=== PATIENT | female | born 1995 | race Hispanic/Latino ===

== ENCOUNTER 2019-11-05 04:22 | Emergency (ER) | payer SELFPAY ==
[2019-11-05 05:56] LABS: Basophils % (Auto) 0.4 % (0.0-1.8); Eosinophils % (Auto) 0.1 % (0.0-4.3); Hematocrit 34.8 % (30.3-42.9); Hemoglobin 11.4 gm/dl (10.1-14.3); Lymphocytes # (Auto) 1.5 K/mm3 (1.2-5.4); Lymphocytes % (Auto) 14.6 % (13.4-35.0); Mean Corpuscular HGB Conc 33 % (30-34); Mean Corpuscular Volume 83 fl (79-97); Monocytes # (Auto) 0.9 K/mm3 (0.0-0.8); Monocytes % (Auto) 8.9 % (0.0-7.3); Platelet Count 256 K/mm3 (140-440); Red Blood Count 4.21 M/mm3 (3.65-5.03); Red Cell Distribution Width 13.4 % (13.2-15.2)
[2019-11-05 06:17] LABS: BUN/Creatinine Ratio 11; Blood Urea Nitrogen 8 mg/dL (7-17); Calcium 8.8 mg/dL (8.4-10.2); Hemolysis Index 5
[2019-11-05] MEDS ORDERED: POTASSIUM CHLORIDE ER 20 MEQ TAB PO ONE (10:34)
--- NOTE | 2019-11-05 10:41 | Emergency Department Report ---
ED Psych HPI - General Chief Complaint: Altered Mental Status Stated Complaint: ALTERED MENTAL STATUS Time Seen by Provider: 11/05/19 10:29 Source: patient Mode of arrival: Ambulatory - History of Present Illness Initial Comments: Patient is 24 years old female, unknown past medical or psychiatric history. Patient brought to the emergency room via EMS. When they took patient to triage patient stated that she wants some mental evaluation. Patient found by a triage nurse taking her in pain and trying to stab her wrist. When I examined the patient patient with a poor eye contact and when asked questions to give completely irrelevant answers. When asked patient about depression or suicidal ideation she turned her head away. Patient is alert and in no acute distress. MD Complaint: altered mental status - Related Data Allergies Allergy/AdvReac Type Severity Reaction Status Date / Time codeine Allergy Unknown Verified 11/05/19 11:29 ED Review of Systems ROS: Stated complaint: ALTERED MENTAL STATUS Other details as noted in HPI Comment: Unobtainable due to pts medical conditions ED Physical Exam - General Limitations: No Limitations General appearance: alert, in no apparent distress - Head Head exam: Present: atraumatic, normocephalic, normal inspection - Eye Eye exam: Present: normal appearance - ENT ENT exam: Present: normal exam, normal orophraynx, mucous membranes moist - Neck Neck exam: Present: normal inspection, full ROM. Absent: tenderness, meningismus - Respiratory Respiratory exam: Present: normal lung sounds bilaterally - Cardiovascular Cardiovascular Exam: Present: regular rate, normal rhythm, normal heart sounds - GI/Abdominal GI/Abdominal exam: Present: soft, normal bowel sounds. Absent: distended, tenderness, guarding, rebound, rigid, organomegaly, mass, bruit, pulsatile mass, hernia - Extremities Exam Extremities exam: Present: normal inspection, full ROM, normal capillary refill. Absent: tenderness, pedal edema, joint swelling, calf tenderness - Back Exam Back exam: Present: normal inspection, full ROM. Absent: CVA tenderness (R), CVA tenderness (L), muscle spasm, paraspinal tenderness, vertebral tenderness - Neurological Exam Neurological exam: Present: alert, altered, CN II-XII intact, normal gait, reflexes normal. Absent: motor sensory deficit - Psychiatric Psychiatric exam: Present: flat affect - Skin Skin exam: Present: warm, intact, normal color ED Course Vital Signs 11/05/19 11/05/19 11/05/19 04:55 11:04 11:15 Temperature Pulse Rate 111 H 95 H 88 Respiratory 18 16 10 L Rate Blood Pressure 112/78 115/80 Blood Pressure [Right] O2 Sat by Pulse 98 99 Oximetry 11/05/19 11/05/19 11/05/19 11:30 11:45 12:00 Temperature Pulse Rate 88 83 82 Respiratory 10 L 8 L 10 L Rate Blood Pressure 110/79 116/79 109/72 Blood Pressure [Right] O2 Sat by Pulse 99 100 99 Oximetry 11/05/19 11/05/19 11/05/19 12:15 12:30 12:45 Temperature Pulse Rate 69 84 93 H Respiratory 15 14 11 L Rate Blood Pressure 114/82 117/86 111/74 Blood Pressure [Right] O2 Sat by Pulse 100 100 94 Oximetry 11/05/19 11/05/19 11/05/19 13:01 13:15 13:31 Temperature Pulse Rate 95 H 89 Respiratory 15 12 Rate Blood Pressure 111/74 106/74 111/74 Blood Pressure [Right] O2 Sat by Pulse 100 Oximetry 11/05/19 11/05/19 11/05/19 14:03 14:15 14:41 Temperature Pulse Rate 95 H 100 H 92 H Respiratory 13 21 18 Rate Blood Pressure 111/74 111/74 Blood Pressure [Right] O2 Sat by Pulse Oximetry 11/05/19 11/05/19 11/05/19 14:45 15:01 15:15 Temperature Pulse Rate 95 H 79 82 Respiratory 13 13 18 Rate Blood Pressure Blood Pressure [Right] O2 Sat by Pulse Oximetry 11/05/19 11/05/19 11/05/19 15:31 15:45 15:47 Temperature 98.5 F Pulse Rate 77 77 Respiratory 18 15 Rate Blood Pressure Blood Pressure [Right] O2 Sat by Pulse Oximetry 11/06/19 11/06/19 11/06/19 08:07 13:25 20:30 Temperature 97.4 F L 97.9 F 98 F Pulse Rate 85 89 92 H Respiratory 14 18 16 Rate Blood Pressure Blood Pressure 98/61 118/68 92/56 [Right] O2 Sat by Pulse 98 99 Oximetry 11/07/19 11/07/19 11/07/19 01:35 07:37 09:52 Temperature 98.1 F 97.6 F Pulse Rate 80 86 Respiratory 14 16 20 Rate Blood Pressure Blood Pressure 117/83 104/57 [Right] O2 Sat by Pulse 98 100 Oximetry ED Medical Decision Making - Lab Data Result diagrams: 11/05/19 05:24 11/06/19 14:18 - Medical Decision Making Patient is 24 years old female, unknown past medical or psychiatric history. Patient brought to the emergency room via EMS. When they took patient to triage patient stated that she wants some mental evaluation. Patient found by a triage nurse taking her in pain and trying to stab her wrist. When I examined the patient patient with a poor eye contact and when asked questions to give completely irrelevant answers. When asked patient about depression or suicidal ideation she turned her head away. Patient is alert and in no acute distress. Patient found to have a potassium of 2.9, corrected with KCl 20 mEq and K. Dur 40 mEq p.o. UDS is positive for methamphetamine. I suspect drug-induced p sychosis. Patient is medically clear for psychiatric evaluation. Critical Care Time: Yes Critical care time in (mins) excluding proc time.: 30 Critical care attestation.: If time is entered above; I have spent that time in minutes in the direct care of this critically ill patient, excluding procedure time. ED Disposition Clinical Impression: Hypokalemia, Drug-induced psychotic disorder Disposition: [id number] PSY HOSP/PSY UNIT Is pt being admited?: No Condition: Stable Referrals: PRIMARY CARE [Primary Care Provider] - 3-5 Days
[2019-11-05 11:16] LABS: Benzodiazepines Screen,Urine Negative; Cannabinoid Screen,Urine Negative; Cocaine Screen,Urine Negative; Methadone Screen,Urine Negative; Opiate Screen,Urine Negative
[2019-11-05 11:21] LABS: Bilirubin,Urine NEG (Negative); Blood,Urine LG (Negative); Color,Urine Yellow (Yellow); Mucus,Urine 1+ /HPF; Protein,Urine <15 mg/dL mg/dL (Negative); RBC,Urine > 182.0 /HPF (0.0-6.0)
[2019-11-05 11:29] LABS: Amphetamine Screen,Urine Positive
[2019-11-05 16:27] LABS: BUN/Creatinine Ratio 20; Blood Urea Nitrogen 10 mg/dL (7-17); Calcium 8.4 mg/dL (8.4-10.2); Hemolysis Index 7
[2019-11-06] MEDS ORDERED: POTASSIUM CHLORIDE ER 20 MEQ TAB PO ONE (10:40)
--- NOTE | 2019-11-06 14:43 | Consultation ---
History of Present Illness - Reason for Consult Consult date: 11/06/19 Reason for consult: SI - History of Present Psychiatric Illness The patient's medical record was reviewed and the patient's progress was discussed with the medical staff. The nurse note states the patient is unaware of where she is, refers to herself as "Kedan," and states she wants to leave. Bee Tamayo is a 24y/o female patient who was brought to the ER by EMS. During my interview with the patient she is lying down. Her behavior is odd. She is responding to internal stimuli. She makes poor eye contact. She was unable to give a lot of detail into her history or what's presently going on with her. The patient says, "I got dropped off because I wanted to come here." She then says, "I can't focus." When asked about hallucinations, she says, "not right now." She then says, "but sometimes when I don't get enough sleep I hallucinate." She then says, "by the way you don't look good. You need sleep too." She then says, "girl, don't even try it." The patient is staring at the wall as I'm writing. She denies any psychiatric history or being on any psych meds. The patient denies SI/HI or every attempting suicide. The patient denies any illicit drug use, alcohol or nicotine. When asked about UDS being positive, the patient doesn't answer the question directly, she says "I feel fine right now." PAST PSYCHIATRIC HISTORY Diagnoses: Denies Suicide attempts or Self-harm behavior: Denies Prior psychiatric hospitalizations: Denies Substance Abuse history: Denies but UDS pos for amphetamines Previous psychiatric medications tried: Denies Outpatient treatment: Denies PAST MEDICAL HISTORY: None reported Family Psychiatric History: None reported or documented SOCIAL HISTORY Marital Status: Single Living Arrangements: with friend Employment Status: Unemployed Access to guns/weapons: Denies Education: high school History of Abuse: Denies Legal History: Denies REVIEW OF SYSTEMS Constitutional: Negative for weight loss ENT: Negative for stridor Respiratory: Negative for cough or hemoptysis All other systems reviewed and are negative MENTAL STATUS EXAMINATION General Appearance: Dressed appropriately Behavior: calm, odd, not forthcoming Mood: "fine" Affect and affective range: Congruent with stated mood Speech: Normal tone and pace Thought Process: Responding to internal stimuli Thought content: Suicidal Ideation: Denies Homicidal Ideation: Denies Hallucination: Auditory Delusions: None elicited Insight/Judgment: Limited Memory/Cognition: Limited ASSESSMENT Substance Induced Mood Disorder RECOMMENDATIONS MEDICATIONS Start Risperidone 0.25mg po BID Start Trazodone 50mg po qhs Risks, benefits and alternatives of medications discussed with the patient, questions answered and consent obtained from patient. PSYCHOTHERAPY: Supportive psychotherapy provided MEDICAL: Per primary team DELIRIUM PRECAUTIONS: Please re-orient patient frequently, keep lights on during the day, and minimize benzodiazepines and opiates as these medications could worsen patient's confusion. HOSPITAL SCIENTIST: per medical team DISPOSITION: The patient meets the requirement for acute inpatient psychiatric treatment. She may transfer to an acute psychiatric facility once medically clear. Will Continue to follow Thank you for the consult. Please contact with any questions and/or concerns. Medications and Allergies Allergies Allergy/AdvReac Type Severity Reaction Status Date / Time codeine Allergy Unknown Verified 11/05/19 11:29 Mental Status Exam - Vital signs Last Vital Signs Temp 97.9 F 11/06/19 13:25 Pulse 89 11/06/19 13:25 Resp 18 11/06/19 13:25 BP 118/68 11/06/19 13:25 Pulse Ox 98 11/06/19 08:07 Results Result Diagrams: 11/05/19 05:24 11/05/19 15:55 Abnormal lab results 11/05/19 Range/Units 15:55 Potassium 3.4 L (3.6-5.0) mmol/L Creatinine 0.5 L (0.7-1.2) mg/dL All other labs normal.
[2019-11-06] MEDS: risperiDONE 0.25 MG TAB PO SCH ×2 (15:56→21:30)
[2019-11-06] MEDS ORDERED: traZODone 50 MG TAB PO SCH (22:00)
[2019-11-07] MEDS: risperiDONE 0.25 MG TAB PO SCH (09:47)
[2019-11-07 09:53] VITALS: BP 104/57
--- NOTE | 2019-11-07 10:27 | Progress Note ---
Subjective - Reason for Consult Consult date: 11/07/19 Reason for consult: SI - Chief Complaint Chief complaint: The patient's medical record was reviewed and the patient's progress was discussed with the nursing staff. The nurse note states the patient began to cry when asked to state name and . Pt not answering questions at this time. During my interview with the patient this morning, she is lying down, asleep. She easily arouses. She sits up to speak to me. She is a/o x 3. She makes poor eye contact. She's staring at the wall as she speaks. Her behavior is odd. The patient states, "I feel great." Her affect is restricted. She says she slept "very good." She describes her appetite as "over eating." She says, "I eat a lot of junk food." She denies SI/HI or hallucinations of any kind. The patient starts laughing. She says, "I'm tired and I don't have on makeup." She then states, "I gotta eat breakfast. Did you eat." REVIEW OF SYSTEMS Constitutional: Negative for weight loss ENT: Negative for stridor Respiratory: Negative for cough or hemoptysis All other systems reviewed and are negative MENTAL STATUS EXAMINATION General Appearance: Dressed appropriately Behavior: calm, odd. poor eye contact Mood: "great" Affect and affective range: Incongruent, restricted Speech: Normal tone and pace Thought Process: Responding to internal stimuli Thought content: Suicidal Ideation: Denies Homicidal Ideation: Denies Hallucination: Auditory Delusions: None elicited Insight/Judgment: Limited Memory/Cognition: Limited ASSESSMENT Substance Induced Mood Disorder RECOMMENDATIONS MEDICATIONS Increase Risperidone 0.5mg po BID Start Depakote DR 125mg po BID Risks, benefits and alternatives of medications discussed with the patient, questions answered and consent obtained from patient. PSYCHOTHERAPY: Supportive psychotherapy provided MEDICAL: Per primary team DELIRIUM PRECAUTIONS: Please re-orient patient frequently, keep lights on during the day, and minimize benzodiazepines and opiates as these medications could worsen patient's confusion. RF TECHNICIAN: per medical team DISPOSITION: The patient meets the requirement for acute inpatient psychiatric treatment. She may transfer to an acute psychiatric facility once medically clear. Will Continue to follow Thank you for the consult. Please contact with any questions and/or concerns. Mental Status Exam - Vital signs Last Vital Signs Temp 97.6 F 11/07/19 09:52 Pulse 86 11/07/19 09:52 Resp 20 11/07/19 09:52 BP 104/57 11/07/19 09:52 Pulse Ox 100 11/07/19 09:52
[2019-11-07] MEDS ORDERED: DIVALPROEX DR 125 MG TAB PO SCH (11:00)
[2019-11-07] MEDS ORDERED: risperiDONE 0.25 MG TAB PO SCH (22:00)
== END 2019-11-07 19:02 ==
LOC: ED 04:22
DX: E87.6 Hypokalemia (principal); F19.959 Other psychoactive substance use, unspecified with psychoactive substance-induced psychotic disorder, unspecified; Z88.8 Allergy status to other drugs, medicaments and biological substances
CPT/HCPCS: 36415; 80048; 80307; 80320; 81001; 82962; 84132; 84703; 85025; 93005; G0480